=== PATIENT | female | born 1990 | race Caucasian/White ===

== ENCOUNTER 2023-11-08 07:05 | Inpatient (IN) | payer BC ==
[~2023-11-08] VITALS: Ht 154.9 cm; Wt 71.4 kg
[2023-11-08 08:26] LABS: Basophils # (auto) 0 10 ^3/uL (0-0.2); Eosinophils # (auto) 0 10 ^3/uL (0-0.8); Mean Corpuscular Hgb Conc. 31.5 g/dL (32.0-36.0); Monocytes # (auto) 0.3 10 ^3/uL (0-1.3)
[2023-11-08 08:28] LABS: Basophils % (auto) 0.6 % (0.0-2.0); Eosinophils % (auto) 0.4 % (0.0-7.0); Hematocrit 30.6 % (36.0-46.0); Hemoglobin 9.6 g/dL (12.2-16.2); Lymphocytes % (auto) 36.1 % (10.0-50.0); Mean Corpuscular Hemoglobin 21.3 pg (28.0-32.0); Mean Corpuscular Volume 67.4 fL (80.0-100.0); Monocytes % (auto) 5.7 % (0.0-12.0); Neutrophils # (auto) 3.2 10 ^3/uL (1.6-8.6); Neutrophils % (auto) 57.2 % (37.0-80.0); Nucleated Red Blood Cells % 0.1 %; Red Blood Cells 4.54 10^6/uL (4.0-5.20); White Blood Cell 5.6 10^3/uL (4.4-10.8)
[2023-11-08 08:38] LABS: Chloride 108 mmol/L (98-107); Sodium 139 mmol/L (136-145)
[2023-11-08 08:39] LABS: Anion Gap 5 (5-15); Calcium 9.1 mg/dL (8.5-10.1); Carbon Dioxide 26 mmol/L (20-30)
[2023-11-08 08:43] LABS: Urine Bacteria FEW /hpf (None Seen); Urine Blood Negative /uL (Negative); Urine Clarity Clear (Clear); Urine Color Light-Yellow (Yellow); Urine Mucus FEW (None Seen); Urine Protein, UAD TRACE (Negative); Urine Specific Gravity 1.021 (1.001-1.035); Urine Urobilinogen Normal (Negative); Urine WBC 5 /hpf (0 - 5); Urine pH 5.5 (5.0-9.0)
[2023-11-08 08:44] LABS: BUN/Creatinine Ratio 9.5 (10.0-20.0); Blood Urea Nitrogen 6 mg/dL (9-23); Glucose 98 mg/dL (74-106)
[2023-11-08] MEDS ORDERED: NITR-87 PO (09:04)
[2023-11-08] MEDS: cefTRIAXone 1GM/50ML D5W 50 ML IV ONE (09:29)
[2023-11-08 09:39] VITALS: PULSE 72; RESP 15; O2SAT 96
[2023-11-08] MEDS ORDERED: ACETAMINOPHEN 325 MG TAB PO PRN (10:45)
[2023-11-08] MEDS ORDERED: MORPHINE SULFATE INJ 2 MG/ml SYRG IV PRN (10:45)
[2023-11-08] MEDS ORDERED: ONDANSETRON HCL 4 MG/2 ML VIAL IV PRN (10:45)
[2023-11-08] MEDS ORDERED: DOCUSATE SOD 100 MG CAP PO PRN (10:45)
[2023-11-08] MEDS ORDERED: NITROGLYCERIN 0.4 MG SL TAB SL PRN (10:45)
[2023-11-08] MEDS: SODIUM CHLORIDE 0.9% 1,000 ML IV ONE (10:53)
[2023-11-08] MEDS: HYDROcodone-ACET 5/325MG TAB PO PRN (16:41)
[2023-11-08 18:34] VITALS: BP 125/72; PULSE 72; RESP 18; TEMP 98.3; O2SAT 98
[2023-11-08] MEDS: MORPHINE SULFATE INJ 2 MG/ml SYRG IV PRN (20:57)
[2023-11-08 21:00] VITALS: BP 140/79; PULSE 97; RESP 12; TEMP 97.9; O2SAT 99
[2023-11-09 04:43] VITALS: BP 112/62; PULSE 90; RESP 16; TEMP 98.7; O2SAT 96
[2023-11-09] MEDS: PANTOPRAZOLE 40 MG TAB PO SCH (05:24)
[2023-11-09 05:44] LABS: Basophils # (auto) 0 10 ^3/uL (0-0.2); Eosinophils # (auto) 0 10 ^3/uL (0-0.8); Eosinophils % (auto) 0.6 % (0.0-7.0); Hematocrit 29.7 % (36.0-46.0); Monocytes # (auto) 0.4 10 ^3/uL (0-1.3); Neutrophils # (auto) 2.8 10 ^3/uL (1.6-8.6)
[2023-11-09 05:50] LABS: Basophils % (auto) 0.4 % (0.0-2.0); Hemoglobin 9.3 g/dL (12.2-16.2); Lymphocytes # (auto) 2.5 10 ^3/uL (0.4-5.4); Lymphocytes % (auto) 43.6 % (10.0-50.0); Mean Corpuscular Hemoglobin 21.1 pg (28.0-32.0); Mean Corpuscular Hgb Conc. 31.3 g/dL (32.0-36.0); Mean Corpuscular Volume 67.4 fL (80.0-100.0); Monocytes % (auto) 6.7 % (0.0-12.0); Neutrophils % (auto) 48.7 % (37.0-80.0); Red Blood Cells 4.41 10^6/uL (4.0-5.20); Red Cell Distribution Width 17.4 % (11.8-14.3); White Blood Cell 5.8 10^3/uL (4.4-10.8)
[2023-11-09 05:56] LABS: Albumin 3.9 g/dL (3.2-4.8); Alkaline Phosphatase 52 U/L (46-116); Anion Gap 6 (5-15); Aspartate Aminotransferase < 8 U/L (13-40); Bilirubin, Total 0.6 mg/dL (0.2-1.0); Calcium 8.9 mg/dL (8.7-10.4); Carbon Dioxide 25 mmol/L (20-30); Chloride 108 mmol/L (98-107); Glucose 96 mg/dL (74-106); Potassium 3.8 mmol/L (3.5-5.1); Sodium 139 mmol/L (136-145); Total Protein 6.4 g/dL (5.7-8.2)
[2023-11-09 06:25] LABS: Alanine Aminotransferase < 9 U/L (7-40); BUN/Creatinine Ratio 8.2 (10.0-20.0); Blood Urea Nitrogen < 5 mg/dL (9-23)
[2023-11-09 08:00] VITALS: RESP 18
[2023-11-09 09:00] VITALS: BP 125/62; PULSE 103; RESP 16; TEMP 98.7; O2SAT 95
[2023-11-09] MEDS ORDERED: CEFU500T43 PO (11:01)
[2023-11-09] MEDS: cefTRIAXone 1GM/50ML D5W 50 ML IV ONE (11:25)
[2023-11-09] MEDS: SODIUM FERR GLUC 62.5MG/5ML 110 ML IV SCH (12:40)
[2023-11-09 12:42] VITALS: BP 114/72; PULSE 71; RESP 16; TEMP 98.4; O2SAT 94
[2023-11-09 13:43] VITALS: BP 101/54; PULSE 60; RESP 18; TEMP 36.9; O2SAT 99
== END 2023-11-09 14:30 | disposition home or self-care (01) | DRG 872 ==
LOC: ER 07:05 → OVERFLOW 10:40 → CENTRAL 18:07
PROVIDERS: ADMIT Nurse Practitioner Family; ATTEND Internal Medicine
DX: A41.9 Sepsis, unspecified organism (principal); N12 Tubulo-interstitial nephritis, not specified as acute or chronic; N30.00 Acute cystitis without hematuria; N92.0 Excessive and frequent menstruation with regular cycle; D50.9 Iron deficiency anemia, unspecified; Z90.49 Acquired absence of other specified parts of digestive tract; Z87.19 Personal history of other diseases of the digestive system; Z79.899 Other long term (current) drug therapy
CPT/HCPCS: 36415; 76775; 80048; 80053; 81001; 85025; 87086; 96361; 96365; 96375; G0378

== ENCOUNTER 2023-11-20 21:56 | Inpatient (IN) | payer BC ==
[~2023-11-20] VITALS: Ht 152.4 cm; Wt 66.8 kg
[~2023-11-20 21:56] MED LIST: CEFU500T43 PO; NITR-87 PO
[2023-11-20 23:17] LABS: Basophils # (auto) 0.1 10 ^3/uL (0-0.2); Basophils % (auto) 0.9 % (0.0-2.0); Eosinophils # (auto) 0.1 10 ^3/uL (0-0.8); Hematocrit 32.5 % (36.0-46.0); Hemoglobin 10.1 g/dL (12.2-16.2); Lymphocytes # (auto) 2.8 10 ^3/uL (0.4-5.4); Lymphocytes % (auto) 43.7 % (10.0-50.0); Mean Corpuscular Hemoglobin 21.5 pg (28.0-32.0); Mean Corpuscular Volume 69.2 fL (80.0-100.0); Monocytes # (auto) 0.4 10 ^3/uL (0-1.3); Monocytes % (auto) 6.1 % (0.0-12.0); Neutrophils # (auto) 3.1 10 ^3/uL (1.6-8.6); Neutrophils % (auto) 48.3 % (37.0-80.0); Nucleated Red Blood Cells % 0.2 %; Red Cell Distribution Width 18.6 % (11.8-14.3); White Blood Cell 6.5 10^3/uL (4.4-10.8)
[2023-11-20 23:30] LABS: Alanine Aminotransferase 13 U/L (7-40); Albumin 4.3 g/dL (3.2-4.8); Alkaline Phosphatase 65 U/L (46-116); Anion Gap 6 (5-15); Aspartate Aminotransferase 9 U/L (13-40); BUN/Creatinine Ratio 14.9 (10.0-20.0); Bilirubin, Total 0.4 mg/dL (0.2-1.0); Blood Urea Nitrogen 11 mg/dL (9-23); Calcium 9.6 mg/dL (8.7-10.4); Carbon Dioxide 27 mmol/L (20-30); Chloride 107 mmol/L (98-107); Glucose 97 mg/dL (74-106); Potassium 3.3 mmol/L (3.5-5.1); Sodium 140 mmol/L (136-145); Total Protein 7.2 g/dL (5.7-8.2)
[2023-11-20 23:41] LABS: Urine Bacteria FEW /hpf (None Seen); Urine Blood Negative /uL (Negative); Urine Clarity Clear (Clear); Urine Color Colorless (Yellow); Urine Protein, UAD Negative (Negative); Urine Specific Gravity 1.008 (1.001-1.035); Urine Urobilinogen Normal (Negative); Urine WBC <1 /hpf (0 - 5)
[2023-11-21 01:30] LABS: INR 0.97 (0.9-1.15); Partial Thromboplastin Time 23.4 SEC (24.5-34.5); Prothrombin Time 10.3 sec (9.3-11.8)
[2023-11-21 03:30] VITALS: PULSE 90; RESP 16; O2SAT 100
[2023-11-21] MEDS: IOHEXOL 350 MG/ML 100ML IJ ONE (03:34)
[2023-11-21] MEDS: POTASSIUM CHL 20 Meq TABLET PO ONE ×2 (03:34→13:38)
[2023-11-21] MEDS: ENOXAPARIN SOD 100 MG/1 ML SYRINGE SC ONE (05:59)
[2023-11-21] MEDS ORDERED: ACETAMINOPHEN 325 MG TAB PO PRN (06:00)
[2023-11-21] MEDS ORDERED: HYDROcodone-ACET 5/325MG TAB PO PRN (06:00)
[2023-11-21] MEDS ORDERED: TEMAZEPAM 15 MG CAP PO PRN (06:00)
[2023-11-21] MEDS ORDERED: ONDANSETRON HCL 4 MG/2 ML VIAL IV PRN (06:00)
[2023-11-21 06:40] VITALS: TEMP 98
[2023-11-21 06:56] VITALS: PULSE 78; RESP 17; O2SAT 100
[2023-11-21 07:45] VITALS: PULSE 79; RESP 14; O2SAT 97
[2023-11-21 12:33] VITALS: BP 128/83; PULSE 91; RESP 13; O2SAT 97
[2023-11-21] MEDS ORDERED: ENOXAPARIN SOD 100 MG/1 ML SYRINGE SC SCH (22:00)
== END 2023-11-21 15:40 | disposition home or self-care (01) | DRG 301 ==
LOC: ER 21:56 → OVERFLOW 11-21 05:57
PROVIDERS: ADMIT Internal Medicine; ATTEND Internal Medicine
DX: I82.612 Acute embolism and thrombosis of superficial veins of left upper extremity (principal); E87.6 Hypokalemia; Z98.51 Tubal ligation status
CPT/HCPCS: 36415; 71045; 71275; 80053; 81001; 81025; 83880; 84484; 85025; 85610; 85730; 93005; 93971; 96372; G0378

== ENCOUNTER 2023-12-11 20:43 | Emergency (ER) | payer BC ==
[~2023-12-11] VITALS: Ht 157.5 cm; Wt 68.0 kg
[2023-12-11 21:10] LABS: Basophils # (auto) 0.1 10 ^3/uL (0-0.2); Basophils % (auto) 0.6 % (0.0-2.0); Eosinophils # (auto) 0 10 ^3/uL (0-0.8); Eosinophils % (auto) 0.4 % (0.0-7.0); Hematocrit 33.7 % (36.0-46.0); Hemoglobin 10.7 g/dL (12.2-16.2); Lymphocytes # (auto) 2.5 10 ^3/uL (0.4-5.4); Lymphocytes % (auto) 24.5 % (10.0-50.0); Mean Corpuscular Hemoglobin 21.8 pg (28.0-32.0); Mean Corpuscular Hgb Conc. 31.7 g/dL (32.0-36.0); Mean Corpuscular Volume 68.7 fL (80.0-100.0); Monocytes # (auto) 0.4 10 ^3/uL (0-1.3); Monocytes % (auto) 3.8 % (0.0-12.0); Neutrophils # (auto) 7.1 10 ^3/uL (1.6-8.6); Neutrophils % (auto) 70.7 % (37.0-80.0); Red Cell Distribution Width 19.7 % (11.8-14.3); White Blood Cell 10.1 10^3/uL (4.4-10.8)
[2023-12-11 21:34] LABS: Alanine Aminotransferase 17 U/L (7-40); Albumin 4.5 g/dL (3.2-4.8); Alkaline Phosphatase 66 U/L (46-116); Anion Gap 15 (5-15); Aspartate Aminotransferase 11 U/L (13-40); BUN/Creatinine Ratio 11.3 (10.0-20.0); Bilirubin, Total 0.4 mg/dL (0.2-1.0); Blood Urea Nitrogen 9 mg/dL (9-23); Calcium 9.5 mg/dL (8.5-10.1); Carbon Dioxide 17 mmol/L (20-30); Chloride 106 mmol/L (98-107); Glucose 119 mg/dL (74-106); Magnesium 2.1 mg/dL (1.6-2.6); Potassium 3.9 mmol/L (3.5-5.1); Sodium 138 mmol/L (136-145)
[2023-12-11 21:35] LABS: Total Protein 7.4 g/dL (5.7-8.2)
[2023-12-11] MEDS: IOHEXOL 350 MG/ML 100ML IJ ONE (21:35)
[2023-12-11 21:51] LABS: Urine Bacteria FEW /hpf (None Seen); Urine Blood 3+ /uL (Negative); Urine Budding Yeast OCCASIONAL /hpf (None Seen); Urine Clarity Turbid (Clear); Urine Color Colorless (Yellow); Urine Protein, UAD 1+ (Negative); Urine Specific Gravity 1.008 (1.001-1.035); Urine Urobilinogen Normal (Negative); Urine WBC 116 /hpf (0 - 5); Urine pH 5.5 (5.0-9.0)
[2023-12-12 00:15] VITALS: BP 117/75; PULSE 97; RESP 16; TEMP 98.2; O2SAT 96
== END 2023-12-12 00:51 | disposition home or self-care (01) ==
LOC: ER 20:43
DX: R07.89 Other chest pain (principal); Z98.51 Tubal ligation status
CPT/HCPCS: 36415; 71045; 71275; 80053; 81001; 83735; 83880; 84484; 85025; 93005; 99285; Q9967

== ENCOUNTER 2023-12-18 09:27 | Emergency (ER) | payer BC ==
[~2023-12-18] VITALS: Ht 154.9 cm; Wt 66.0 kg
[2023-12-18 09:46] VITALS: BP 150/70; PULSE 104; RESP 18; O2SAT 97
[2023-12-18 10:09] LABS: Eosinophils # (auto) 0 10 ^3/uL (0-0.8); Hemoglobin 10.5 g/dL (12.2-16.2); Neutrophils # (auto) 4.8 10 ^3/uL (1.6-8.6); Neutrophils % (auto) 70.9 % (37.0-80.0); Nucleated Red Blood Cells % 0.1 %
[2023-12-18 10:12] LABS: Basophils # (auto) 0 10 ^3/uL (0-0.2); Basophils % (auto) 0.7 % (0.0-2.0); Eosinophils % (auto) 0.2 % (0.0-7.0); Hematocrit 32.7 % (36.0-46.0); Lymphocytes # (auto) 1.6 10 ^3/uL (0.4-5.4); Lymphocytes % (auto) 23.2 % (10.0-50.0); Mean Corpuscular Hemoglobin 22.3 pg (28.0-32.0); Mean Corpuscular Volume 69.6 fL (80.0-100.0); Monocytes # (auto) 0.3 10 ^3/uL (0-1.3); Red Cell Distribution Width 20.1 % (11.8-14.3); White Blood Cell 6.8 10^3/uL (4.4-10.8)
[2023-12-18 10:21] LABS: Chloride 105 mmol/L (98-107); Potassium 3.7 mmol/L (3.5-5.1); Sodium 138 mmol/L (136-145)
[2023-12-18 10:22] LABS: Anion Gap 7 (5-15); Carbon Dioxide 26 mmol/L (20-30)
[2023-12-18 10:23] LABS: Calcium 9.6 mg/dL (8.7-10.4)
[2023-12-18 10:27] LABS: BUN/Creatinine Ratio 22.4 (10.0-20.0); Blood Urea Nitrogen 15 mg/dL (9-23); Glucose 106 mg/dL (74-106)
[2023-12-18 13:43] LABS: Urine Bacteria FEW /hpf (None Seen); Urine Blood Negative /uL (Negative); Urine Clarity Clear (Clear); Urine Color Light-Yellow (Yellow); Urine Protein, UAD TRACE (Negative); Urine Urobilinogen Normal (Negative); Urine WBC 1 /hpf (0 - 5)
[2023-12-18 13:44] LABS: Urine Specific Gravity > 1.050 (1.001-1.035)
[2023-12-18] MEDS: IOHEXOL 350 MG/ML 100ML IJ ONE (13:59)
== END 2023-12-18 14:01 | disposition left against medical advice (07) ==
LOC: ER 09:27
DX: R07.89 Other chest pain (principal); R78.9 Finding of unspecified substance, not normally found in blood; Z98.51 Tubal ligation status
CPT/HCPCS: 36415; 71275; 80048; 81001; 84484; 85025; 85379; 93005; 99285; Q9967